=== PATIENT | female | born 1930 | race Caucasian/White ===

== ENCOUNTER 2017-08-09 12:26 | Inpatient (IN) | payer MEDICARE ==
[~2017-08-09] VITALS: Ht 152.4 cm; Wt 57.7 kg
[~2017-08-09 12:26] MED LIST: ASPIRIN81 M1 PO; ATIVAN1 MG PO; CALCIUM W/VITAM1 TAB PO; CYMBALTA30 MG PO; PERCOCET 325 MG1 TA3 PO; RECLAST5 MG/100 M IV; SIMVASTATIN20 MG PO; ZOCOR10 MG
[2017-08-09 12:34] VITALS: BP 136/45
[2017-08-09 13:15] VITALS: BP 125/51
[2017-08-09 13:22] LABS: BASO % 0.1 % (0.0-1.0); EOS % 0.1 % (1.0-4.0); HEMATOCRIT 36.5 % (37.0-47.0); HEMOGLOBIN 12.3 g/dl (12.0-16.0); LYMPH % 12.1 % (27.0-41.0); MEAN CELL VOLUME 88.4 fl (81.0-99.0); MEAN CORPUSCULAR HGB 29.8 pg (27.0-31.0); MEAN CORPUSCULAR HGB CONC 33.7 g/dl (33.0-37.0); MEAN PLATELET VOLUME 8.7 fl (9.6-12.3); MONO # 0.8 10*3/uL (0.1-1.0); MONO % 9.8 % (3.0-9.0); NEUT # 6.4 10*3/uL (2.3-7.9); PLATELET COUNT AUTOMATED 186 10*3/uL (130-400); RED BLOOD COUNT 4.13 10*6/uL (4.10-5.10); RED CELL DISTRI WIDTH 13.7 % (0-14.5); WHITE BLOOD COUNT 8.4 10*3/uL (4.8-10.8)
[2017-08-09 13:38] LABS: ALBUMIN 3.3 gm/dl (3.1-4.5); CREATININE 1.29 mg/dL (0.55-1.02); POTASSIUM 2.9 mmol/L (3.5-5.1); TOTAL PROTEIN 7.2 gm/dL (6.4-8.2)
[2017-08-09 14:00] VITALS: BP 140/43
[2017-08-09 15:00] VITALS: BP 141/80
[2017-08-09 15:30] VITALS: BP 141/59
[2017-08-09] MEDS ORDERED: RESTORIL15 MG PO (18:21)
[2017-08-09] MEDS ORDERED: LAMICTAL150 MG PO (18:22)
[2017-08-09 20:00] VITALS: BP 129/49
[2017-08-10] VITALS: BP 121/50
[2017-08-10 06:49] LABS: BASO % 0.3 % (0.0-1.0); EOS % 0.3 % (1.0-4.0); HEMATOCRIT 35.7 % (37.0-47.0); HEMOGLOBIN 11.9 g/dl (12.0-16.0); LYMPH % 11.9 % (27.0-41.0); MEAN CELL VOLUME 89.9 fl (81.0-99.0); MEAN CORPUSCULAR HGB CONC 33.3 g/dl (33.0-37.0); MEAN PLATELET VOLUME 9.3 fl (9.6-12.3); MONO # 0.7 10*3/uL (0.1-1.0); MONO % 8.4 % (3.0-9.0); NEUT # 6.7 10*3/uL (2.3-7.9); NEUT % 77.7 % (47.0-73.0); PLATELET COUNT AUTOMATED 207 10*3/uL (130-400); RED BLOOD COUNT 3.97 10*6/uL (4.10-5.10); RED CELL DISTRI WIDTH 13.9 % (0-14.5); WHITE BLOOD COUNT 8.6 10*3/uL (4.8-10.8)
[2017-08-10 06:56] LABS: CHLORIDE 102 mmol/L (98-107); CHOLESTEROL 136 mg/dL (<200); CREATININE 0.92 mg/dL (0.55-1.02); FREE T4 1.41 ng/dl (0.76-1.46); HDL CHOLESTEROL 65 mg/dl (40-60); LDL CHOLESTEROL 52 mg/dL (9-159); PHOSPHOROUS 1.4 mg/dL (2.5-4.9); POTASSIUM 3.5 mmol/L (3.5-5.1); SODIUM 137 mmol/L (136-145); TRIGLYCERIDES 94 mg/dl (<150); VLDL CHOLESTEROL 19 mg/dL (6-40)
[2017-08-10 07:02] LABS: BUN 21 mg/dl (7-24); THYROID STIM HORMONE (HS) 0.614 uIU/ml (0.358-4.75)
[2017-08-10 07:14] LABS: ACT PARTIAL THROMBO TIME 23.3 SECONDS (20.8-31.5); INTERNATIONAL NORM RATIO 0.9 (2.0-3.5)
[2017-08-10 08:00] VITALS: BP 127/57
[2017-08-10 08:01] LABS: VITAMIN D, 25-HYDROXY 44.5 ng/mL (30-100)
[2017-08-10 11:16] LABS: BILIRUBIN NEGATIVE (NEGATIVE); BLOOD 1+ (NEGATIVE); CLARITY CLEAR (CLEAR); COLOR YELLOW (YELLOW); GLUCOSE NEGATIVE (NEGATIVE); KETONE 1+ (NEGATIVE); LEUKO ESTERASE NEGATIVE (NEGATIVE); NITRITE NEGATIVE (NEGATIVE); PH 5.5 (5.0-9.0)
[2017-08-10 12:00] VITALS: BP 143/48
[2017-08-10 16:43] VITALS: BP 125/53
[2017-08-10 20:00] VITALS: BP 118/55
[2017-08-11 01:16] VITALS: BP 108/48
[2017-08-11 06:51] LABS: BASO % 0.3 % (0.0-1.0); EOS # 0.1 10*3/uL (0.0-0.4); EOS % 0.6 % (1.0-4.0); HEMATOCRIT 35.7 % (37.0-47.0); HEMOGLOBIN 11.8 g/dl (12.0-16.0); MEAN CELL VOLUME 88.6 fl (81.0-99.0); MEAN CORPUSCULAR HGB 29.3 pg (27.0-31.0); MEAN CORPUSCULAR HGB CONC 33.1 g/dl (33.0-37.0); MEAN PLATELET VOLUME 9.2 fl (9.6-12.3); MONO # 0.8 10*3/uL (0.1-1.0); NEUT # 6.6 10*3/uL (2.3-7.9); NEUT % 76.8 % (47.0-73.0); PLATELET COUNT AUTOMATED 239 10*3/uL (130-400); RED BLOOD COUNT 4.03 10*6/uL (4.10-5.10); RED CELL DISTRI WIDTH 13.6 % (0-14.5); WHITE BLOOD COUNT 8.6 10*3/uL (4.8-10.8)
[2017-08-11 06:54] LABS: ALBUMIN 2.7 gm/dl (3.1-4.5); ALKALINE PHOSPHATASE 80 U/L (45-117); BUN 15 mg/dl (7-24); CHLORIDE 96 mmol/L (98-107); CREATININE 0.91 mg/dL (0.55-1.02); PHOSPHOROUS 2.3 mg/dL (2.5-4.9); POTASSIUM 3.1 mmol/L (3.5-5.1); SGOT/AST 56 IU/L (3-35); SGPT/ALT 73 U/L (12-78); SODIUM 136 mmol/L (136-145); TOTAL PROTEIN 6.6 gm/dL (6.4-8.2)
[2017-08-11 08:00] VITALS: BP 102/54
[2017-08-11 12:00] VITALS: BP 109/50
[2017-08-11 16:00] VITALS: BP 107/37
[2017-08-11 20:00] VITALS: BP 103/51
[2017-08-12] VITALS: BP 132/66
[2017-08-12 07:17] LABS: BUN 13 mg/dl (7-24); CHLORIDE 100 mmol/L (98-107); PHOSPHOROUS 3.3 mg/dL (2.5-4.9); POTASSIUM 3.6 mmol/L (3.5-5.1); SODIUM 138 mmol/L (136-145)
[2017-08-12 08:00] VITALS: BP 113/45
[2017-08-12 12:00] VITALS: BP 128/53
[2017-08-12 16:00] VITALS: BP 106/45
[2017-08-12 20:00] VITALS: BP 126/48
[2017-08-13 00:20] VITALS: BP 109/42
[2017-08-13 06:34] LABS: BUN 10 mg/dl (7-24); CHLORIDE 100 mmol/L (98-107); POTASSIUM 4.1 mmol/L (3.5-5.1); SODIUM 137 mmol/L (136-145)
[2017-08-13 06:59] LABS: HEMATOCRIT 35.6 % (37.0-47.0); HEMOGLOBIN 11.7 g/dl (12.0-16.0); MEAN CORPUSCULAR HGB 30.2 pg (27.0-31.0); MEAN CORPUSCULAR HGB CONC 32.9 g/dl (33.0-37.0); MEAN PLATELET VOLUME 8.7 fl (9.6-12.3); RED BLOOD COUNT 3.87 10*6/uL (4.10-5.10); RED CELL DISTRI WIDTH 13.7 % (0-14.5); WHITE BLOOD COUNT 7.8 10*3/uL (4.8-10.8)
[2017-08-13 07:02] LABS: PLATELET COUNT AUTOMATED 371 10*3/uL (130-400)
[2017-08-13 07:18] LABS: PLATELET SUFFICIENCY NORMAL (NORMAL); TOTAL CELLS COUNTED 100 #CELLS
[2017-08-13 08:00] VITALS: BP 110/47
[2017-08-13 12:00] VITALS: BP 116/43
[2017-08-13 16:00] VITALS: BP 114/49
[2017-08-13 20:00] VITALS: BP 116/43
[2017-08-14 00:17] VITALS: BP 131/46
[2017-08-14 06:50] VITALS: BP 126/58
[2017-08-14 07:10] LABS: HEMATOCRIT 37.9 % (37.0-47.0); HEMOGLOBIN 12.4 g/dl (12.0-16.0); MEAN CELL VOLUME 92.9 fl (81.0-99.0); MEAN CORPUSCULAR HGB 30.4 pg (27.0-31.0); MEAN CORPUSCULAR HGB CONC 32.7 g/dl (33.0-37.0); MEAN PLATELET VOLUME 8.6 fl (9.6-12.3); PLATELET COUNT AUTOMATED 400 10*3/uL (130-400); RED BLOOD COUNT 4.08 10*6/uL (4.10-5.10); RED CELL DISTRI WIDTH 13.6 % (0-14.5); WHITE BLOOD COUNT 9.4 10*3/uL (4.8-10.8)
[2017-08-14 07:27] LABS: CHLORIDE 100 mmol/L (98-107); CREATININE 0.97 mg/dL (0.55-1.02); POTASSIUM 3.9 mmol/L (3.5-5.1); SODIUM 138 mmol/L (136-145)
[2017-08-14 07:34] LABS: BUN 11 mg/dl (7-24)
[2017-08-14 07:42] LABS: PLATELET SUFFICIENCY NORMAL (NORMAL); TOTAL CELLS COUNTED 100 #CELLS
[2017-08-14 12:00] VITALS: BP 114/37
[2017-08-14 16:00] VITALS: BP 106/51
[2017-08-14 20:00] VITALS: BP 100/66
[2017-08-15] VITALS: BP 94/56
[2017-08-15 06:30] VITALS: BP 151/72
[2017-08-15 06:36] LABS: HEMATOCRIT 34.6 % (37.0-47.0); HEMOGLOBIN 11.2 g/dl (12.0-16.0); MEAN CELL VOLUME 93.8 fl (81.0-99.0); MEAN CORPUSCULAR HGB 30.4 pg (27.0-31.0); MEAN CORPUSCULAR HGB CONC 32.4 g/dl (33.0-37.0); MEAN PLATELET VOLUME 8.5 fl (9.6-12.3); PLATELET COUNT AUTOMATED 402 10*3/uL (130-400); RED BLOOD COUNT 3.69 10*6/uL (4.10-5.10); RED CELL DISTRI WIDTH 13.8 % (0-14.5); WHITE BLOOD COUNT 6.8 10*3/uL (4.8-10.8)
[2017-08-15 07:08] LABS: BUN 12 mg/dl (7-24); CHLORIDE 105 mmol/L (98-107); POTASSIUM 4.7 mmol/L (3.5-5.1); SODIUM 142 mmol/L (136-145)
[2017-08-15 07:24] LABS: ATYPICAL LYMPHS 1 % (0-0); PLATELET SUFFICIENCY NORMAL (NORMAL); TOTAL CELLS COUNTED 100 #CELLS
[2017-08-15 08:00] VITALS: BP 130/59
[2017-08-15 12:00] VITALS: BP 123/47
[2017-08-15] MEDS ORDERED: VIBRAMYCIN100 MG PO (13:21)
[2017-08-15] MEDS ORDERED: RESTORIL15 MG PO (13:21)
[2017-08-15] MEDS ORDERED: DUONEB 3 MG/3 ML3 M1 NEB (13:21)
== END 2017-08-15 14:10 | disposition other institution (70) | DRG 682 ==
LOC: ED 12:26 → 5E 14:43 → EDHOLD 14:43 → 5E 14:44
PROVIDERS: Emergency Medicine; Family Medicine; Internal Medicine; Registered Nurse
DX: N17.0 Acute kidney failure with tubular necrosis (principal); J18.1 Lobar pneumonia, unspecified organism; J96.01 Acute respiratory failure with hypoxia; E43 Unspecified severe protein-calorie malnutrition; E86.0 Dehydration; E87.8 Other disorders of electrolyte and fluid balance, not elsewhere classified; R56.9 Unspecified convulsions; E87.1 Hypo-osmolality and hyponatremia; E87.6 Hypokalemia; E78.5 Hyperlipidemia, unspecified; W18.39XA Other fall on same level, initial encounter; M85.80 Other specified disorders of bone density and structure, unspecified site; E83.39 Other disorders of phosphorus metabolism; Z68.24 Body mass index [BMI] 24.0-24.9, adult; Y93.89 Activity, other specified; Y92.008 Other place in unspecified non-institutional (private) residence as the place of occurrence of the external cause; Y99.8 Other external cause status; Z79.82 Long term (current) use of aspirin; Z79.899 Other long term (current) drug therapy; Z82.49 Family history of ischemic heart disease and other diseases of the circulatory system; Z82.3 Family history of stroke